=== PATIENT | female | born 1975 | race American Indian/Alaskan Native ===

== ENCOUNTER 2018-01-06 09:53 | Observation (INO) | payer MEDICARE ==
[2018-01-06] MEDS ORDERED: KEPPRA 1,000 MG/NS 0.75% 100ML 1,000 MG/100 ML BAG IV ONE (10:38)
[2018-01-06 10:50] LABS: Hematocrit 42.9 % (30.3-42.9); Hemoglobin 14.2 gm/dl (10.1-14.3); Mean Corpuscular HGB Conc 33 % (30-34); Mean Corpuscular Hemoglobin 30 pg (28-32); Mean Corpuscular Volume 89 fl (79-97); Platelet Count 255 K/mm3 (140-440); Red Blood Count 4.82 M/mm3 (3.65-5.03); Red Cell Distribution Width 13.8 % (13.2-15.2)
--- NOTE | 2018-01-06 10:50 | Emergency Department Report ---
ED Seizure HPI - General Chief Complaint: Seizure Stated Complaint: SEIZURE Time Seen by Provider: 01/06/18 10:15 Source: patient, EMS Mode of arrival: Ambulatory Limitations: No Limitations - History of Present Illness Initial Comments: 42-year-old female who states she has diffuse generalized seizures today. 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 She states that she self adjusting her own Keppra with a maximum of 3000 mg a day. She admits to missing some recent doses. She states that she does have her medication. She did not report any injury but states feels sore. She was not aware of a tongue abrasion which was found on exam. She does not complain of headache or any neurological change. She states that she had some sort of imaging at [facility] in [place] which showed an abnormality in her left frontal lobe. She states that it was not a tumor scar or abnormal blood vessel. She goes to a neurologist in [place]. She states that she is due to see him. The nurse has entered the social history. MD Complaint: seizure -: hour(s) Description of Episode: loss of consciousness, tonic-clonic movement -: second(s), minutes(s) Witnessed:: Yes Trauma: No (nothing significant) Seizure History: known seizure disorder Place: home Possible Precipitating Event: other (noncompliance) Associated Symptoms: denies other symptoms Treatments Prior to Arrival: none - Related Data Home Medications Medication Instructions Recorded Confirmed Last Taken Lacosamide [Vimpat] 300 mg PO DAILY 01/06/18 01/06/18 01/04/18 lamoTRIgine [LaMICtal] 100 mg PO QDAY 01/06/18 01/06/18 01/05/18 levETIRAcetam [Keppra] 1,500 mg PO DAILY 01/06/18 01/06/18 01/04/18 Allergies Allergy/AdvReac Type Severity Reaction Status Date / Time No Known Allergies Allergy Verified 04/22/14 21:44 ED Review of Systems ROS: Stated complaint: SEIZURE Other details as noted in HPI Constitutional: denies: chills, fever Eyes: denies: eye pain, eye discharge, vision change ENT: denies: ear pain, throat pain Respiratory: denies: cough, shortness of breath, wheezing Cardiovascular: denies: chest pain, palpitations Endocrine: no symptoms reported Gastrointestinal: denies: abdominal pain, nausea, diarrhea Genitourinary: denies: urgency, dysuria, discharge Musculoskeletal: denies: back pain, joint swelling, arthralgia Skin: denies: rash, lesions Neurological: denies: headache, weakness, paresthesias Psychiatric: denies: anxiety, depression Hematological/Lymphatic: denies: easy bleeding, easy bruising ED Past Medical Hx - Past Medical History Previous Medical History?: Yes Hx Hypertension: Yes Hx CVA: No Hx Heart Attack/AMI: No Hx Congestive Heart Failure: No Hx Diabetes: No Hx Deep Vein Thrombosis: No Hx Pulmonary Embolism: No Hx GERD: No Hx Liver Disease: No Hx Renal Disease: No Hx Sickle Cell Disease: No Hx Arthritis: No Hx Headaches / Migraines: No Hx Seizures: Yes (epilepsy) Hx Kidney Stones: No Hx Psychiatric Treatment: Yes (depression) Hx Asthma: No Hx COPD: No Hx Tuberculosis: No Hx Dementia: No Hx HIV: No - Surgical History Past Surgical History?: Yes Hx Coronary Stent: No Hx Open Heart Surgery: No Hx Pacemaker: No Hx Internal Defibrillator: No Hx Cholecystectomy: Yes (2003) Hx Appendectomy: No Hx Breast Surgery: No Additional Surgical History: hysterectomy 2012. abdominal abscess removal 2012 - Social History Smoking Status: Current Every Day Smoker Substance Use Type: Alcohol, Marijuana, Prescribed - Medications Home Medications: Home Medications Medication Instructions Recorded Confirmed Last Taken Type Lacosamide [Vimpat] 300 mg PO DAILY 01/06/18 01/06/18 01/04/18 History lamoTRIgine [LaMICtal] 100 mg PO QDAY 01/06/18 01/06/18 01/05/18 History levETIRAcetam [Keppra] 1,500 mg PO DAILY 01/06/18 01/06/18 01/04/18 History ED Physical Exam - General Limitations: No Limitations General appearance: alert, in no apparent distress - Head Head exam: Present: atraumatic, normocephalic - Eye Eye exam: Present: normal appearance - ENT ENT exam: Present: mucous membranes moist, other (small abrasion tip of the tongue noted) - Neck Neck exam: Present: normal inspection. Absent: tenderness, meningismus - Respiratory Respiratory exam: Present: normal lung sounds bilaterally. Absent: respiratory distress - Cardiovascular Cardiovascular Exam: Present: regular rate, normal rhythm. Absent: systolic murmur, diastolic murmur, rubs, gallop - GI/Abdominal GI/Abdominal exam: Present: soft, normal bowel sounds. Absent: distended, tenderness, guarding, rebound, rigid - Extremities Exam Extremities exam: Present: normal inspection. Absent: tenderness, joint swelling, calf tenderness - Back Exam Back exam: Present: normal inspection, full ROM. Absent: tenderness, CVA tenderness (R), CVA tenderness (L), muscle spasm, paraspinal tenderness, vertebral tenderness - Neurological Exam Neurological exam: Present: alert, oriented X3, CN II-XII intact. Absent: motor sensory deficit - Psychiatric Psychiatric exam: Present: normal affect, normal mood - Skin Skin exam: Present: warm, dry, intact, normal color. Absent: rash ED Course Vital Signs 01/06/18 01/06/18 01/06/18 10:03 10:15 10:30 Temperature 98.1 F Pulse Rate 113 H Respiratory 20 Rate Blood Pressure 123/80 140/81 O2 Sat by Pulse 96 94 97 Oximetry 01/06/18 01/06/18 01/06/18 10:46 11:00 11:16 Temperature Pulse Rate Respiratory Rate Blood Pressure 140/81 140/81 140/81 O2 Sat by Pulse 97 93 92 Oximetry - Reevaluation(s) Reevaluation #1: The patient was found to be hypocalcemic but not hypomagnesemic. A parathyroid hormone level was ordered. Drug screen results are noted. The patient states that she has never had this problem with low calcium before. She was placed on a monitoring tech and EKG was obtained. She was counseled that admission was necessary. 2 g of calcium gluconate as ordered. Apparently the hospital only has calcium chloride. This will be substituted. She is monitoring and further workup. The hospitalist Dr. Jaimes will be informed. She will be admitted to telemetry. Chest x-ray and EKG will be reviewed. 01/06/18 12:14 ED Medical Decision Making - Lab Data Result diagrams: 01/06/18 10:28 01/06/18 10:28 Laboratory Results - last 24 hr 01/06/18 01/06/18 01/06/18 10:28 10:28 10:28 WBC 9.2 RBC 4.82 Hgb 14.2 Hct 42.9 MCV 89 MCH 30 MCHC 33 RDW 13.8 Plt Count 255 Sodium 144 Potassium 3.7 Chloride 103.6 Carbon Dioxide 28 Anion Gap 16 BUN 14 Creatinine 0.7 Estimated GFR > 60 BUN/Creatinine Ratio 20 Glucose 103 H Calcium 6.0 L TSH 0.843 Urine Color Urine Turbidity Urine pH Ur Specific [place] Urine Protein Urine Glucose (UA) Urine Ketones Urine Blood Urine Nitrite Urine Bilirubin Urine Urobilinogen Ur Leukocyte Esterase Urine WBC (Auto) Urine RBC (Auto) U Epithel Cells (Auto) Hyaline Casts Urine Mucus Urine HCG, Qual 01/06/18 10:30 WBC RBC Hgb Hct MCV MCH MCHC RDW Plt Count Sodium Potassium Chloride Carbon Dioxide Anion Gap BUN Creatinine Estimated GFR BUN/Creatinine Ratio Glucose Calcium TSH Urine Color Yellow Urine Turbidity Clear Urine pH 5.0 Ur Specific [place] 1.019 Urine Protein <15 mg/dl Urine Glucose (UA) Neg Urine Ketones Neg Urine Blood Sm Urine Nitrite Neg Urine Bilirubin Neg Urine Urobilinogen < 2.0 Ur Leukocyte Esterase Neg Urine WBC (Auto) 1.0 Urine RBC (Auto) 2.0 U Epithel Cells (Auto) 9.0 Hyaline Casts 1 Urine Mucus Few Urine HCG, Qual Negative Laboratory Results - last 24 hr 01/06/18 01/06/18 01/06/18 10:28 10:28 10:28 WBC 9.2 RBC 4.82 Hgb 14.2 Hct 42.9 MCV 89 MCH 30 MCHC 33 RDW 13.8 Plt Count 255 Sodium 144 Potassium 3.7 Chloride 103.6 Carbon Dioxide 28 Anion Gap 16 BUN 14 Creatinine 0.7 Estimated GFR > 60 BUN/Creatinine Ratio 20 Glucose 103 H Calcium 6.0 L Magnesium Total Bilirubin Direct Bilirubin Indirect Bilirubin AST ALT Alkaline Phosphatase Total Protein Albumin Albumin/Globulin Ratio TSH 0.843 Urine Color Urine Turbidity Urine pH Ur Specific [place] Urine Protein Urine Glucose (UA) Urine Ketones Urine Blood Urine Nitrite Urine Bilirubin Urine Urobilinogen Ur Leukocyte Esterase Urine WBC (Auto) Urine RBC (Auto) U Epithel Cells (Auto) Hyaline Casts Urine Mucus Urine HCG, Qual Urine Opiates Screen Urine Methadone Screen Ur Barbiturates Screen Ur Phencyclidine Scrn Ur Amphetamines Screen U Benzodiazepines Scrn Urine Cocaine Screen U Marijuana (THC) Screen Drugs of Abuse Note 01/06/18 01/06/18 01/06/18 10:28 10:28 10:30 WBC RBC Hgb Hct MCV MCH MCHC RDW Plt Count Sodium Potassium Chloride Carbon Dioxide Anion Gap BUN Creatinine Estimated GFR BUN/Creatinine Ratio Glucose Calcium Magnesium 2.20 Total Bilirubin 0.60 Direct Bilirubin < 0.2 Indirect Bilirubin 0.4 AST 17 ALT 14 Alkaline Phosphatase 83 Total Protein 6.9 Albumin 3.9 Albumin/Globulin Ratio 1.3 TSH Urine Color Yellow Urine Turbidity Clear Urine pH 5.0 Ur Specific [place] 1.019 Urine Protein <15 mg/dl Urine Glucose (UA) Neg Urine Ketones Neg Urine Blood Sm Urine Nitrite Neg Urine Bilirubin Neg Urine Urobilinogen < 2.0 Ur Leukocyte Esterase Neg Urine WBC (Auto) 1.0 Urine RBC (Auto) 2.0 U Epithel Cells (Auto) 9.0 Hyaline Casts 1 Urine Mucus Few Urine HCG, Qual Negative Urine Opiates Screen Urine Methadone Screen Ur Barbiturates Screen Ur Phencyclidine Scrn Ur Amphetamines Screen U Benzodiazepines Scrn Urine Cocaine Screen U Marijuana (THC) Screen Drugs of Abuse Note 01/06/18 10:30 WBC RBC Hgb Hct MCV MCH MCHC RDW Plt Count Sodium Potassium Chloride Carbon Dioxide Anion Gap BUN Creatinine Estimated GFR BUN/Creatinine Ratio Glucose Calcium Magnesium Total Bilirubin Direct Bilirubin Indirect Bilirubin AST ALT Alkaline Phosphatase Total Protein Albumin Albumin/Globulin Ratio TSH Urine Color Urine Turbidity Urine pH Ur Specific [place] Urine Protein Urine Glucose (UA) Urine Ketones Urine Blood Urine Nitrite Urine Bilirubin Urine Urobilinogen Ur Leukocyte Esterase Urine WBC (Auto) Urine RBC (Auto) U Epithel Cells (Auto) Hyaline Casts Urine Mucus Urine HCG, Qual Urine Opiates Screen Presumptive negative Urine Methadone Screen Presumptive negative Ur Barbiturates Screen Presumptive negative Ur Phencyclidine Scrn Presumptive negative Ur Amphetamines Screen Presumptive positive U Benzodiazepines Scrn Presumptive negative Urine Cocaine Screen Presumptive positive U Marijuana (THC) Screen Presumptive positive Drugs of Abuse Note Disclamer - EKG Data -: EKG Interpreted by Ar EKG shows normal: sinus rhythm, axis, intervals, QRS complexes, ST-T waves Rate: normal - EKG Data Interpretation: other (normal QT interval) - Radiology Data Radiology results: report reviewed (normal chest x-ray) Critical care attestation.: If time is entered above; I have spent that time in minutes in the direct care of this critically ill patient, excluding procedure time. ED Disposition Clinical Impression: Grand mal seizure, History of seizure disorder, Hypocalcemia, Polysubstance abuse Disposition: [id number] OP ADMIT IP TO THIS HOSP Is pt being admited?: Yes Does the pt Need Aspirin: Yes Condition: Stable Referrals: CORTEZ WEATHERS MD [Other] - 3-5 Days Time of Disposition: 12:17
[2018-01-06 10:54] LABS: Bilirubin,Urine NEG (Negative); Blood,Urine SM (Negative); Color,Urine Yellow (Yellow); Hyaline Casts,Urine 1 /LPF; Mucus,Urine FEW /HPF; Protein,Urine <15 mg/dL mg/dL (Negative); Urobilinogen,Urine < 2.0 mg/dL (<2.0)
[2018-01-06 11:06] LABS: BUN/Creatinine Ratio 20; Blood Urea Nitrogen 14 mg/dL (7-17); Hemolysis Index 16
[2018-01-06 11:06] LABS: HCG Qualitative,Urine Negative (Negative)
[2018-01-06 11:25] LABS: Benzodiazepines Screen,Urine PRESUMPTIVE NEGATIVE; Methadone Screen,Urine PRESUMPTIVE NEGATIVE; Opiate Screen,Urine PRESUMPTIVE NEGATIVE
[2018-01-06 11:33] LABS: Alanine Aminotransferase 14 units/L (7-56); Albumin 3.9 g/dL (3.9-5)
[2018-01-06 11:35] LABS: Bilirubin,Direct < 0.2 mg/dL (0-0.2)
[2018-01-06 11:46] LABS: Amphetamine Screen,Urine PRESUMPTIVE POSITIVE; Cannabinoid Screen,Urine PRESUMPTIVE POSITIVE; Cocaine Screen,Urine PRESUMPTIVE POSITIVE
[2018-01-06] MEDS ORDERED: CALCIUM GLUCONATE 2,000 MG in NACL 0.9% 100 ML IV ONE (12:07)
[2018-01-06] MEDS ORDERED: BABY ASPIRIN PO ONE (12:17)
[2018-01-06 12:28] LABS: Creatine Kinase MB 3.2 ng/mL (0.0-4.0)
[2018-01-06] MEDS ORDERED: CALCIUM CHLORIDE IV ONE ×3 (12:56→20:00)
[2018-01-06] MEDS ORDERED: NACL 0.9% IV ONE ×2 (13:00→20:00)
--- NOTE | 2018-01-06 14:00 | History and Physical Report ---
History of Present Illness Date of examination: 01/06/18 Date of admission: 01/06/2018 Chief complaint: Chief complaint: Seizures times 2 in the morning History of present illness: History of Present Illness: 42-year-old female with history of seizures comes in for 2 generalized tonic- clonic seizures since a.m. Patient was postictal. Patient has been adjusting her own Keppra with a maximum of 3000 mg a day. No reported injury. No biting of tongue. No focal deficits. Patient recently had some imaging studies in [place] and she does not know the results. She sees a neurologist in [place]. No shortness of breath no chest pain. No recent travel. No abdominal pain. No exacerbating or relieving factors other than noncompliance. Past Medical History Previous Medical History?: Yes Hx Hypertension: Yes Hx Seizures: Yes (epilepsy) Hx Psychiatric Treatment: Yes (depression) Surgical History Past Surgical History?: Yes Hx Cholecystectomy: Yes (2003) Additional Surgical History: hysterectomy 2012. abdominal abscess removal 2012 Social History Smoking Status: Current Every Day Smoker Substance Use Type: Alcohol, Marijuana, Prescribed Medications Home Medications: Home Medications Medication Instructions Recorded Confirmed Last Taken Type Lacosamide [Vimpat] 300 mg PO DAILY 01/06/18 01/06/18 01/04/18 History lamoTRIgine [LaMICtal] 100 mg PO QDAY 01/06/18 01/06/18 01/05/18 History levETIRAcetam [Keppra] 1,500 mg PO DAILY 01/06/18 01/06/18 01/04/18 History Family history Htn Review of Systems ROS: Stated complaint: SEIZURE Other details as noted in HPI Constitutional: denies: chills, fever Eyes: denies: eye pain, eye discharge, vision change ENT: denies: ear pain, throat pain Respiratory: denies: cough, shortness of breath, wheezing Cardiovascular: denies: chest pain, palpitations Endocrine: no symptoms reported Gastrointestinal: denies: abdominal pain, nausea, diarrhea Genitourinary: denies: urgency, dysuria, discharge Musculoskeletal: denies: back pain, joint swelling, arthralgia Skin: denies: rash, lesions Neurological: denies: headache, weakness, paresthesias Psychiatric: denies: anxiety, depression Hematological/Lymphatic: denies: easy bleeding, easy bruising 14 point review of systems done----otherwise negative Medications and Allergies Allergies Allergy/AdvReac Type Severity Reaction Status Date / Time No Known Allergies Allergy Verified 04/22/14 21:44 Home Medications Medication Instructions Recorded Confirmed Last Taken Type Atenolol [Tenormin] 100 mg PO BID 01/06/18 01/06/18 Unknown History Furosemide [Lasix] 40 mg PO BID 01/06/18 01/06/18 Unknown History Lacosamide [Vimpat] 300 mg PO DAILY 01/06/18 01/06/18 01/04/18 History Sertraline [Zoloft] 100 mg PO BID 01/06/18 01/06/18 Unknown History amLODIPine [Norvasc] 10 mg PO DAILY 01/06/18 01/06/18 Unknown History lamoTRIgine [LaMICtal] 100 mg PO QDAY 01/06/18 01/06/18 01/05/18 History levETIRAcetam [Keppra] 1,500 mg PO DAILY 01/06/18 01/06/18 01/04/18 History tiZANidine [Zanaflex] 4 mg PO TID PRN 01/06/18 01/06/18 Unknown History Active Meds: Active Medications Calcium Chloride 2,000 mg/ (Sodium Chloride) 270 mls @ 125 mls/hr IV ONCE.ED ONE Stop: 01/06/18 15:09 Last Admin: 01/06/18 13:27 Dose: 125 mls/hr Exam - Constitutional Vitals: Temp Pulse Resp BP Pulse Ox 98.1 F 113 H 20 140/81 92 01/06/18 10:03 01/06/18 10:03 01/06/18 10:03 01/06/18 11:16 01/06/18 11:16 General appearance: Present: no acute distress, well-nourished - EENT Eyes: Present: PERRL ENT: hearing intact, clear oral mucosa - Neck Neck: Present: supple, normal ROM - Respiratory Respiratory effort: normal Respiratory: bilateral: CTA - Cardiovascular Heart rate: 76 Rhythm: regular Heart Sounds: Present: S1 & S2. Absent: rub, click - Extremities Extremities: no ischemia, pulses intact, pulses symmetrical, No edema Peripheral Pulses: within normal limits - Abdominal General gastrointestinal: Present: soft, non-tender, non-distended, normal bowel sounds Female genitourinary: Present: normal - Rectal Rectal Exam: deferred - Integumentary Integumentary: Present: clear, warm, dry - Musculoskeletal Musculoskeletal: gait normal, strength equal bilaterally - Psychiatric Psychiatric: appropriate mood/affect, intact judgment & insight - Neurologic Neurologic: CNII-XII intact, moves all extremities - Allied Health Allied health notes reviewed: nursing, case management Results - Labs CBC & Chem 7: 01/06/18 10:28 01/06/18 10:28 Labs: Laboratory Last Values WBC 9.2 K/mm3 (4.5-11.0) 01/06/18 10:28 RBC 4.82 M/mm3 (3.65-5.03) 01/06/18 10:28 Hgb 14.2 gm/dl (10.1-14.3) 01/06/18 10:28 Hct 42.9 % (30.3-42.9) 01/06/18 10:28 MCV 89 fl (79-97) 01/06/18 10:28 MCH 30 pg (28-32) 01/06/18 10:28 MCHC 33 % (30-34) 01/06/18 10:28 RDW 13.8 % (13.2-15.2) 01/06/18 10:28 Plt Count 255 K/mm3 (140-440) 01/06/18 10:28 Sodium 144 mmol/L (137-145) 01/06/18 10:28 Potassium 3.7 mmol/L (3.6-5.0) 01/06/18 10:28 Chloride 103.6 mmol/L (98-107) 01/06/18 10:28 Carbon Dioxide 28 mmol/L (22-30) 01/06/18 10:28 Anion Gap 16 mmol/L 01/06/18 10:28 BUN 14 mg/dL (7-17) 01/06/18 10:28 Creatinine 0.7 mg/dL (0.7-1.2) 01/06/18 10:28 Estimated GFR > 60 ml/min 01/06/18 10:28 BUN/Creatinine Ratio 20 % 01/06/18 10:28 Glucose 103 mg/dL (65-100) H 01/06/18 10:28 Calcium 6.0 mg/dL (8.4-10.2) L 01/06/18 10:28 Magnesium 2.20 mg/dL (1.7-2.3) 01/06/18 10:28 Total Bilirubin 0.60 mg/dL (0.1-1.2) 01/06/18 10:28 Direct Bilirubin < 0.2 mg/dL (0-0.2) 01/06/18 10:28 Indirect Bilirubin 0.4 mg/dL 01/06/18 10:28 AST 17 units/L (5-40) 01/06/18 10:28 ALT 14 units/L (7-56) 01/06/18 10:28 Alkaline Phosphatase 83 units/L (35-129) 01/06/18 10:28 Total Creatine Kinase 273 units/L (30-135) H 01/06/18 10:28 CK-MB (CK-2) 3.2 ng/mL (0.0-4.0) 01/06/18 10:28 CK-MB (CK-2) Rel Index 1.1 (0-4) 01/06/18 10:28 Total Protein 6.9 g/dL (6.3-8.2) 01/06/18 10:28 Albumin 3.9 g/dL (3.9-5) 01/06/18 10:28 Albumin/Globulin Ratio 1.3 % 01/06/18 10:28 TSH 0.843 mlU/mL (0.270-4.200) 01/06/18 10:28 PTH Intact 28.13 pg/mL (15-65) 01/06/18 10:28 Urine Color Yellow (Yellow) 01/06/18 10:30 Urine Turbidity Clear (Clear) 01/06/18 10:30 Urine pH 5.0 (5.0-7.0) 01/06/18 10:30 Ur Specific [place] 1.019 (1.003-1.030) 01/06/18 10:30 Urine Protein <15 mg/dl mg/dL (Negative) 01/06/18 10:30 Urine Glucose (UA) Neg mg/dL (Negative) 01/06/18 10:30 Urine Ketones Neg mg/dL (Negative) 01/06/18 10:30 Urine Blood Sm (Negative) 01/06/18 10:30 Urine Nitrite Neg (Negative) 01/06/18 10:30 Urine Bilirubin Neg (Negative) 01/06/18 10:30 Urine Urobilinogen < 2.0 mg/dL (<2.0) 01/06/18 10:30 Ur Leukocyte Esterase Neg (Negative) 01/06/18 10:30 Urine WBC (Auto) 1.0 /HPF (0.0-6.0) 01/06/18 10:30 Urine RBC (Auto) 2.0 /HPF (0.0-6.0) 01/06/18 10:30 U Epithel Cells (Auto) 9.0 /HPF (0-13.0) 01/06/18 10:30 Hyaline Casts 1 /LPF 01/06/18 10:30 Urine Mucus Few /HPF 01/06/18 10:30 Urine HCG, Qual Negative (Negative) 01/06/18 10:30 Urine Opiates Screen Presumptive negative 01/06/18 10:30 Urine Methadone Screen Presumptive negative 01/06/18 10:30 Ur Barbiturates Screen Presumptive negative 01/06/18 10:30 Ur Phencyclidine Scrn Presumptive negative 01/06/18 10:30 Ur Amphetamines Screen Presumptive positive 01/06/18 10:30 U Benzodiazepines Scrn Presumptive negative 01/06/18 10:30 Urine Cocaine Screen Presumptive positive 01/06/18 10:30 U Marijuana (THC) Screen Presumptive positive 01/06/18 10:30 Drugs of Abuse Note Disclamer 01/06/18 10:30 Short CBC 01/06/18 Range/Units 10:28 WBC 9.2 (4.5-11.0) K/mm3 Hgb 14.2 (10.1-14.3) gm/dl Hct 42.9 (30.3-42.9) % Plt Count 255 (140-440) K/mm3 BMP 01/06/18 10:28 Sodium 144 Potassium 3.7 Chloride 103.6 Carbon Dioxide 28 BUN 14 Creatinine 0.7 Glucose 103 H Calcium 6.0 L Cardiac Enzymes 01/06/18 Range/Units 10:28 Total Creatine Kinase 273 H (30-135) units/L CK-MB (CK-2) 3.2 (0.0-4.0) ng/mL Liver Function 01/06/18 Range/Units 10:28 Total Bilirubin 0.60 (0.1-1.2) mg/dL Direct Bilirubin < 0.2 (0-0.2) mg/dL AST 17 (5-40) units/L ALT 14 (7-56) units/L Alkaline Phosphatase 83 (35-129) units/L Albumin 3.9 (3.9-5) g/dL Urine // Range/Units 10:30 Urine Color Yellow (Yellow) Urine pH 5.0 (5.0-7.0) Ur Specific [place] 1.019 (1.003-1.030) Urine Protein <15 mg/dl (Negative) mg/dL Urine Glucose (UA) Neg (Negative) mg/dL - Imaging and Cardiology EKG: report reviewed ( 72/m ) Assessment and Plan Advance Directives: Yes (full code) VTE prophylaxis?: Chemical Plan of care discussed with patient/family: Yes - Patient Problems (1) Status epilepticus Current Visit: Yes Status: Acute Plan to address problem: Patient initiated on IV Keppra Continue Vimpat and Lamictal Neuro consult requested May require EEG (2) Hypocalcemia Current Visit: Yes Status: Acute Plan to address problem: Supplemented Parathyroid hormone level ordered (3) Polysubstance abuse Current Visit: Yes Status: Chronic Plan to address problem: Patient counseled about polysubstance abuse and its effect on seizures. Drug screen positive for cocaine marijuana and amphetamines Mental health consult requested (4) Hypertension Current Visit: Yes Status: Chronic Qualifiers: Hypertension type: essential hypertension Qualified Code(s): I10 - Essential (primary) hypertension Plan to address problem: Continue atenolol and amlodipine (5) CHF (congestive heart failure) Current Visit: Yes Status: Chronic Qualifiers: Heart failure type: combined systolic and diastolic Plan to address problem: Continue Lasix Patient not on potassium Will add potassium Echocardiogram ordered (6) DVT prophylaxis Current Visit: Yes Status: Acute Plan to address problem: On heparin 5000 units subcutaneous every 12 hours
[2018-01-06] MEDS ORDERED: ZANAFLEX PO PRN (18:37)
[2018-01-06] MEDS ORDERED: LACOSAMIDE 300 MG PO SCH (18:45)
[2018-01-06] MEDS ORDERED: TYLENOL PO PRN (18:53)
[2018-01-06] MEDS ORDERED: ZOFRAN IV PRN (18:53)
[2018-01-06] MEDS ORDERED: SODIUM CHLORIDE FLUSH SYRINGE 10 ML IV PRN (18:53)
[2018-01-06] MEDS ORDERED: PERCOCET 5/325 PO PRN (18:53)
[2018-01-06] MEDS ORDERED: NACL 0.9% 1000 ML 1,000 ML IV SCH (19:00)
[2018-01-06] MEDS: ZOLOFT PO SCH (21:46)
[2018-01-06] MEDS: LaMICtal PO SCH (21:46)
[2018-01-06] MEDS: NORVASC PO SCH (21:46)
[2018-01-06] MEDS: VIMPAT PO SCH (21:46)
[2018-01-06] MEDS: TENORMIN PO SCH (21:47)
[2018-01-06] MEDS ORDERED: NON-FORMULARY (Atenolol [Tenormin] 100 MG) PO SCH (22:00)
[2018-01-06] MEDS ORDERED: LASIX PO SCH (22:00)
[2018-01-07] MEDS: PEPCID PO SCH ×3 (00:41→22:03)
[2018-01-07] MEDS: SODIUM CHLORIDE FLUSH SYRINGE 10 ML IV SCH ×3 (01:10→22:04)
[2018-01-07] MEDS: LASIX PO SCH ×2 (06:43→17:57)
[2018-01-07 08:51] LABS: Basophils # (Auto) 0.1 K/mm3 (0.0-0.1); Basophils % (Auto) 0.6 % (0.0-1.8); Eosinophils # (Auto) 0.2 K/mm3 (0.0-0.4); Eosinophils % (Auto) 2.1 % (0.0-4.3); Hematocrit 39.7 % (30.3-42.9); Hemoglobin 12.9 gm/dl (10.1-14.3); Lymphocytes # (Auto) 3.5 K/mm3 (1.2-5.4); Lymphocytes % (Auto) 34.2 % (13.4-35.0); Mean Corpuscular HGB Conc 33 % (30-34); Mean Corpuscular Hemoglobin 29 pg (28-32); Mean Corpuscular Volume 90 fl (79-97); Monocytes # (Auto) 0.6 K/mm3 (0.0-0.8); Monocytes % (Auto) 5.6 % (0.0-7.3); Platelet Count 251 K/mm3 (140-440); Red Blood Count 4.43 M/mm3 (3.65-5.03); Red Cell Distribution Width 13.7 % (13.2-15.2)
[2018-01-07 09:18] LABS: Alanine Aminotransferase 11 units/L (7-56); Albumin 3.9 g/dL (3.9-5); BUN/Creatinine Ratio 20; Blood Urea Nitrogen 14 mg/dL (7-17); Calcium 9.2 mg/dL (8.4-10.2); Hemolysis Index 11
[2018-01-07] MEDS: TENORMIN PO SCH ×2 (09:48→22:04)
[2018-01-07] MEDS: VIMPAT PO SCH (09:49)
[2018-01-07] MEDS: NORVASC PO SCH (09:49)
[2018-01-07] MEDS: ZOLOFT PO SCH ×2 (09:49→22:03)
[2018-01-07] MEDS: LaMICtal PO SCH (09:49)
--- NOTE | 2018-01-07 12:30 | Consultation ---
History of Present Illness Consult date: 01/07/18 History of present illness: at least ten year hx of poorly controlled seizures has been on vimpat / keppra / and lamictal made recommendation that the most effective drug to increase is the vimpat neuro exam at present is entirely normal Medications and Allergies Allergies Allergy/AdvReac Type Severity Reaction Status Date / Time No Known Allergies Allergy Verified 04/22/14 21:44 Home Medications Medication Instructions Recorded Confirmed Last Taken Type Atenolol [Tenormin] 100 mg PO BID 01/06/18 01/06/18 Unknown History Furosemide [Lasix] 40 mg PO BID 01/06/18 01/06/18 Unknown History Lacosamide [Vimpat] 300 mg PO DAILY 01/06/18 01/06/18 01/04/18 History Sertraline [Zoloft] 100 mg PO BID 01/06/18 01/06/18 Unknown History amLODIPine [Norvasc] 10 mg PO DAILY 01/06/18 01/06/18 Unknown History lamoTRIgine [LaMICtal] 100 mg PO QDAY 01/06/18 01/06/18 01/05/18 History levETIRAcetam [Keppra] 1,500 mg PO DAILY 01/06/18 01/06/18 01/04/18 History tiZANidine [Zanaflex] 4 mg PO TID PRN 01/06/18 01/06/18 Unknown History Active Meds: Active Medications Acetaminophen (Tylenol) 650 mg PO Q4H PRN PRN Reason: Pain MILD(1-3)/Fever >100.5/FREY Amlodipine Besylate (Norvasc) 10 mg PO DAILY [facility] Last Admin: 01/07/18 09:49 Dose: 10 mg Atenolol (Tenormin) 100 mg PO BID [facility] Last Admin: 01/07/18 09:48 Dose: 100 mg Famotidine (Pepcid) 20 mg PO BID [facility] Last Admin: 01/07/18 09:49 Dose: 20 mg Furosemide (Lasix) 40 mg PO BID@0600,1800 [facility] Last Admin: 01/07/18 06:43 Dose: 40 mg Lacosamide (Vimpat) 300 mg PO DAILY [facility] Last Admin: 01/07/18 09:49 Dose: 300 mg Lamotrigine (Lamictal) 100 mg PO QDAY [facility] Last Admin: 01/07/18 09:49 Dose: 100 mg Ondansetron HCl (Zofran) 4 mg IV Q8H PRN PRN Reason: Nausea And Vomiting Oxycodone/Acetaminophen (Percocet 5/325) 1 tab PO Q6H PRN PRN Reason: Pain, Moderate (4-6) Sertraline HCl (Zoloft) 100 mg PO BID [facility] Last Admin: 01/07/18 09:49 Dose: 100 mg Sodium Chloride (Sodium Chloride Flush Syringe 10 Ml) 10 ml IV BID [facility] Last Admin: 01/07/18 09:50 Dose: 10 ml Sodium Chloride (Sodium Chloride Flush Syringe 10 Ml) 10 ml IV PRN PRN PRN Reason: LINE FLUSH Tizanidine HCl (Zanaflex) 4 mg PO TID PRN PRN Reason: Muscle Spasm Zolpidem Tartrate (Ambien) 5 mg PO QHS PRN PRN Reason: Insomnia Physical Examination - Vital Signs Vital Signs: Vital Signs Temp Pulse Resp BP Pulse Ox 98.1 F 113 H 20 123/80 96 01/06/18 10:03 01/06/18 10:03 01/06/18 10:03 01/06/18 10:03 01/06/18 10:03 Results - Laboratory Findings CBC and BMP: 01/07/18 08:30 01/07/18 08:30 Abnormal Lab Findings: Abnormal Labs 01/06/18 01/06/18 01/07/18 10:28 10:28 08:30 Glucose 103 H 108 H Calcium 6.0 L Total Creatine Kinase 273 H
--- NOTE | 2018-01-07 13:51 | Progress Note ---
Assessment and Plan (1) Status epilepticus Current Visit: Yes Status: Acute Plan to address problem: Patient initiated on IV Keppra Continue Vimpat and Lamictal Neuro consult requested May require EEG (2) Hypocalcemia Current Visit: Yes Status: Acute Plan to address problem: Supplemented Parathyroid hormone level ordered (3) Polysubstance abuse Current Visit: Yes Status: Chronic Plan to address problem: Patient counseled about polysubstance abuse and its effect on seizures. Drug screen positive for cocaine marijuana and amphetamines Mental health consult requested (4) Hypertension Current Visit: Yes Status: Chronic Qualifiers: Hypertension type: essential hypertension Qualified Code(s): I10 - Essential (primary) hypertension Plan to address problem: Continue atenolol and amlodipine (5) CHF (congestive heart failure) Current Visit: Yes Status: Chronic Qualifiers: Heart failure type: combined systolic and diastolic Plan to address problem: Continue Lasix Patient not on potassium Will add potassium Echocardiogram ordered (6) DVT prophylaxis Current Visit: Yes Status: Acute Plan to address problem: On heparin 5000 units subcutaneous every 12 hours Subjective Date of service: 01/07/18 Principal diagnosis: status epilepticus, HFrEF Interval history: Pt seen and examined. No more seizure activity. Objective - Constitutional Vitals: Vital Signs - 12hr 01/07/18 01/07/18 01/07/18 01:48 05:46 07:39 Temperature 98.6 F 98.6 F 97.8 F Pulse Rate 69 72 69 Respiratory 20 18 20 Rate Blood Pressure 161/90 Blood Pressure 153/74 149/81 [Left] O2 Sat by Pulse 92 96 96 Oximetry 01/07/18 01/07/18 01/07/18 08:47 09:48 09:49 Temperature Pulse Rate 69 69 Respiratory 19 Rate Blood Pressure 161/90 161/90 Blood Pressure [Left] O2 Sat by Pulse Oximetry 01/07/18 11:35 Temperature 98.0 F Pulse Rate 71 Respiratory 18 Rate Blood Pressure 144/84 Blood Pressure [Left] O2 Sat by Pulse 92 Oximetry - Labs CBC & Chem 7: 01/07/18 08:30 01/07/18 08:30 Labs: Abnormal lab results 01/07/18 Range/Units 08:30 Glucose 108 H (65-100) mg/dL
[2018-01-07] MEDS: AMBIEN PO PRN (22:16)
[2018-01-08 05:30] LABS: Basophils % (Auto) 0.4 % (0.0-1.8); Eosinophils # (Auto) 0.3 K/mm3 (0.0-0.4); Eosinophils % (Auto) 3.2 % (0.0-4.3); Hematocrit 37.7 % (30.3-42.9); Hemoglobin 12.7 gm/dl (10.1-14.3); Lymphocytes # (Auto) 3.8 K/mm3 (1.2-5.4); Lymphocytes % (Auto) 43.1 % (13.4-35.0); Mean Corpuscular HGB Conc 34 % (30-34); Mean Corpuscular Hemoglobin 30 pg (28-32); Mean Corpuscular Volume 88 fl (79-97); Monocytes # (Auto) 0.6 K/mm3 (0.0-0.8); Monocytes % (Auto) 6.2 % (0.0-7.3); Platelet Count 234 K/mm3 (140-440); Red Blood Count 4.29 M/mm3 (3.65-5.03); Red Cell Distribution Width 13.4 % (13.2-15.2)
[2018-01-08 05:45] LABS: INR 0.9 (0.87-1.13)
[2018-01-08 05:50] LABS: Alanine Aminotransferase 13 units/L (7-56); Albumin 3.8 g/dL (3.9-5); BUN/Creatinine Ratio 17; Blood Urea Nitrogen 12 mg/dL (7-17); Calcium 8.5 mg/dL (8.4-10.2); Hemolysis Index 8
[2018-01-08] MEDS: LASIX PO SCH ×2 (06:02→17:41)
[2018-01-08] MEDS: ZOLOFT PO SCH ×2 (10:14→21:11)
[2018-01-08] MEDS: TENORMIN PO SCH ×2 (10:14→21:11)
[2018-01-08] MEDS: NORVASC PO SCH (10:15)
[2018-01-08] MEDS: PEPCID PO SCH ×2 (10:16→21:11)
[2018-01-08] MEDS: VIMPAT PO SCH (10:16)
[2018-01-08] MEDS: SODIUM CHLORIDE FLUSH SYRINGE 10 ML IV SCH ×2 (10:16→21:12)
[2018-01-08] MEDS: LaMICtal PO SCH (10:16)
--- NOTE | 2018-01-08 14:00 | Progress Note ---
Assessment and Plan (1) Status epilepticus Current Visit: Yes Status: Acute Plan to address problem: Patient initiated on IV Keppra Continue Vimpat and Lamictal Neuro consult requested and adjusted AED dose Pending EEG (2) Hypocalcemia Current Visit: Yes Status: Acute Plan to address problem: Supplemented Parathyroid hormone level ordered (3) Polysubstance abuse Current Visit: Yes Status: Chronic Plan to address problem: Patient counseled about polysubstance abuse and its effect on seizures. Drug screen positive for cocaine marijuana and amphetamines Mental health consult requested (4) Hypertension Current Visit: Yes Status: Chronic Qualifiers: Hypertension type: essential hypertension Qualified Code(s): I10 - Essential (primary) hypertension Plan to address problem: Continue atenolol and amlodipine (5) CHF (congestive heart failure) Current Visit: Yes Status: Chronic Qualifiers: Heart failure type: combined systolic and diastolic Plan to address problem: Continue Lasix Patient not on potassium Will cont potassium Echocardiogram ordered (6) DVT prophylaxis Current Visit: Yes Status: Acute Plan to address problem: On heparin 5000 units subcutaneous every 12 hours Physical Exam: General appearance: Present: no acute distress, well-nourished - EENT Eyes: Present: PERRL ENT: hearing intact, clear oral mucosa - Neck Neck: Present: supple, normal ROM - Respiratory Respiratory effort: normal Respiratory: bilateral: CTA - Cardiovascular Heart rate: 76 Rhythm: regular Heart Sounds: Present: S1 & S2. Absent: rub, click - Extremities Extremities: no ischemia, pulses intact, pulses symmetrical, No edema Peripheral Pulses: within normal limits - Abdominal General gastrointestinal: Present: soft, non-tender, non-distended, normal bowel sounds Female genitourinary: Present: normal - Rectal Rectal Exam: deferred - Integumentary Integumentary: Present: clear, warm, dry - Musculoskeletal Musculoskeletal: gait normal, strength equal bilaterally - Psychiatric Psychiatric: appropriate mood/affect, intact judgment & insight - Neurologic Neurologic: CNII-XII intact, moves all extremities - Allied Health Allied health notes reviewed: nursing, case management Subjective Date of service: 01/08/18 Principal diagnosis: status epilepticus, HFrEF Interval history: Pt seen and examined No further seizure episode EEG pending Objective - Constitutional Vitals: Vital Signs - 12hr 01/08/18 01/08/18 01/08/18 04:35 04:49 08:45 Temperature 98.1 F 97.9 F Pulse Rate 55 L 60 60 Respiratory 18 18 Rate Blood Pressure 137/64 127/67 129/85 O2 Sat by Pulse 99 94 98 Oximetry 01/08/18 01/08/18 01/08/18 09:33 10:14 10:15 Temperature Pulse Rate 61 61 Respiratory 19 Rate Blood Pressure 129/85 129/85 O2 Sat by Pulse Oximetry - Labs CBC & Chem 7: 01/09/18 07:41 01/09/18 07:41 Labs: Abnormal lab results 01/08/18 01/08/18 Range/Units 04:58 04:58 Lymph % (Auto) 43.1 H (13.4-35.0) % Glucose 103 H (65-100) mg/dL Albumin 3.8 L (3.9-5) g/dL
[2018-01-08] MEDS: AMBIEN PO PRN (21:11)
[2018-01-09] MEDS: LASIX PO SCH (05:28)
[2018-01-09 08:03] LABS: Basophils # (Auto) 0.1 K/mm3 (0.0-0.1); Basophils % (Auto) 0.9 % (0.0-1.8); Eosinophils # (Auto) 0.3 K/mm3 (0.0-0.4); Eosinophils % (Auto) 2.8 % (0.0-4.3); Hematocrit 40.5 % (30.3-42.9); Hemoglobin 13.5 gm/dl (10.1-14.3); Lymphocytes # (Auto) 4.1 K/mm3 (1.2-5.4); Lymphocytes % (Auto) 39.7 % (13.4-35.0); Mean Corpuscular HGB Conc 33 % (30-34); Mean Corpuscular Hemoglobin 30 pg (28-32); Mean Corpuscular Volume 89 fl (79-97); Monocytes # (Auto) 0.8 K/mm3 (0.0-0.8); Monocytes % (Auto) 7.4 % (0.0-7.3); Platelet Count 270 K/mm3 (140-440); Red Blood Count 4.57 M/mm3 (3.65-5.03); Red Cell Distribution Width 13.5 % (13.2-15.2)
[2018-01-09 08:54] LABS: Alanine Aminotransferase 25 units/L (7-56); Albumin 3.8 g/dL (3.9-5); BUN/Creatinine Ratio 19; Blood Urea Nitrogen 13 mg/dL (7-17); Hemolysis Index 45
[2018-01-09] MEDS: NORVASC PO SCH (10:00)
[2018-01-09] MEDS: PEPCID PO SCH (10:01)
[2018-01-09] MEDS: SODIUM CHLORIDE FLUSH SYRINGE 10 ML IV SCH (10:01)
[2018-01-09] MEDS: VIMPAT PO SCH (10:03)
[2018-01-09] MEDS: TENORMIN PO SCH (10:03)
[2018-01-09] MEDS: ZOLOFT PO SCH (10:04)
[2018-01-09] MEDS: LaMICtal PO SCH (10:05)
--- NOTE | 2018-01-09 12:55 | Progress Note ---
Subjective Date of service: 01/09/18 Principal diagnosis: status epilepticus, HFrEF Interval history: feel it is OK to be discharged would raise dose of vimpat by 100 mg per day and f/u in my office known hx of seizure disorder Objective - Vital Sign Vital Signs - 12hr 01/09/18 01/09/18 01/09/18 05:46 07:16 10:00 Temperature 98.6 F 98.4 F Pulse Rate 60 57 L 58 L Pulse Rate [ 58 L Right Radial] Respiratory 20 20 20 Rate Blood Pressure 120/50 Blood Pressure 122/57 [Left] O2 Sat by Pulse 95 96 98 Oximetry - Laboratory Findings CBC and BMP: 01/09/18 07:41 01/09/18 07:41 Abnormal Lab Findings: Abnormal Labs 01/06/18 01/06/18 01/07/18 10:28 10:28 08:30 Lymph % (Auto) Sac % (Auto) Glucose 103 H 108 H Calcium 6.0 L Total Creatine Kinase 273 H Albumin 01/08/18 01/08/18 01/09/18 04:58 04:58 07:41 Lymph % (Auto) 43.1 H 39.7 H Sac % (Auto) 7.4 H Glucose 103 H Calcium Total Creatine Kinase Albumin 3.8 L 01/09/18 07:41 Lymph % (Auto) Sac % (Auto) Glucose Calcium Total Creatine Kinase Albumin 3.8 L
--- NOTE | 2018-01-09 14:07 | Discharge Summary ---
Providers - Providers Date of Admission: 01/06/18 12:18 Date of discharge: 01/09/18 Attending physician: RYAN REID 01/06/18 18:53 Consult to Physician [CONS] Routine Comment: Consulting Provider: NESTOR CHRISTENSEN Physician Instructions: Reason For Exam: Seizures Hospitalization Condition: Stable Hospital course: Discharge diagnosis: (1) Status epilepticus Current Visit: Yes Status: Acute Plan to address problem: Patient initiated on IV Keppra Continue Vimpat and Lamictal Neuro consult requested and adjusted AED dose Pending EEG (2) Hypocalcemia Current Visit: Yes Status: Acute Plan to address problem: Supplemented Parathyroid hormone level ordered (3) Polysubstance abuse Current Visit: Yes Status: Chronic Plan to address problem: Patient counseled about polysubstance abuse and its effect on seizures. Drug screen positive for cocaine marijuana and amphetamines Mental health consult requested (4) Hypertension Current Visit: Yes Status: Chronic Qualifiers: Hypertension type: essential hypertension Qualified Code(s): I10 - Essential (primary) hypertension Plan to address problem: Continue atenolol and amlodipine (5) CHF (congestive heart failure) Current Visit: Yes Status: Chronic Qualifiers: Heart failure type: combined systolic and diastolic Plan to address problem: Continue Lasix Patient not on potassium Will cont potassium Echocardiogram ordered (6) DVT prophylaxis Current Visit: Yes Status: Acute Plan to address problem: On heparin 5000 units subcutaneous every 12 hours Physical Exam: General appearance: Present: no acute distress, well-nourished - EENT Eyes: Present: PERRL ENT: hearing intact, clear oral mucosa - Neck Neck: Present: supple, normal ROM - Respiratory Respiratory effort: normal Respiratory: bilateral: CTA - Cardiovascular Heart rate: 76 Rhythm: regular Heart Sounds: Present: S1 & S2. Absent: rub, click - Extremities Extremities: no ischemia, pulses intact, pulses symmetrical, No edema Peripheral Pulses: within normal limits - Abdominal General gastrointestinal: Present: soft, non-tender, non-distended, normal bowel sounds Female genitourinary: Present: normal - Rectal Rectal Exam: deferred - Integumentary Integumentary: Present: clear, warm, dry - Musculoskeletal Musculoskeletal: gait normal, strength equal bilaterally - Psychiatric Psychiatric: appropriate mood/affect, intact judgment & insight - Neurologic Neurologic: CNII-XII intact, moves all extremities - Allied Health Allied health notes reviewed: nursing, case management Disposition: DC-01 TO HOME OR SELFCARE Time spent for discharge: 32 minutes Core Measure Documentation - Palliative Care Palliative Care/ Comfort Measures: Not Applicable - Core Measures Any of the following diagnoses?: none Exam - Constitutional Vitals: Temp Pulse Resp BP Pulse Ox 98.4 F 58 L 20 120/50 98 01/09/18 07:16 01/09/18 10:00 01/09/18 10:00 01/09/18 07:16 01/09/18 10:00 Plan Activity: advance as tolerated Weight Bearing Status: Weight Bear as Tolerated Diet: low fat, low salt Follow up with: CORTEZ WEATHERS MD [Other] - 3-5 Days Prescriptions: Lacosamide [Vimpat] 300 mg PO DAILY #30 tablet levETIRAcetam [Keppra TAB] 1,500 mg PO BID #30 tablet
[2018-01-09 15:28] VITALS: BP 136/72
--- NOTE | 2018-01-10 13:01 | XRay Report ---
AP CHEST: HISTORY: Hypertension AP view of the chest demonstrates a normal mediastinal and cardiac contour with clear lungs and normal bony and soft tissue structures. IMPRESSION: Unremarkable AP chest.
== END 2018-01-09 16:44 | disposition home or self-care (01) ==
LOC: ED 09:53 → INTOOBSV 12:18 → 4A 12:18
PROVIDERS: ADMIT Internal Medicine; ATTEND Internal Medicine
DX: G40.401 Other generalized epilepsy and epileptic syndromes, not intractable, with status epilepticus (principal); I11.0 Hypertensive heart disease with heart failure; I50.42 Chronic combined systolic (congestive) and diastolic (congestive) heart failure; F19.10 Other psychoactive substance abuse, uncomplicated; E83.51 Hypocalcemia; F17.210 Nicotine dependence, cigarettes, uncomplicated; F32.9 Major depressive disorder, single episode, unspecified; Z90.710 Acquired absence of both cervix and uterus
CPT/HCPCS: 36415; 71045; 80048; 80053; 80074; 80307; 81001; 81025; 82550; 82553; 82962; 83036; 83735; 83970; 84100; 84443; 85025; 85027; 85610; 93005; 93010; 95819; 96361; 96365; 96366; 96375; 99285; 99406; G0378; J1953; J7030; J7050

== ENCOUNTER 2018-07-18 16:19 | Emergency (ER) | payer MEDICARE ==
[2018-07-18 16:36] VITALS: BP 129/76
[2018-07-18] MEDS ORDERED: ZOFRAN IV ONE (16:52)
[2018-07-18] MEDS ORDERED: MORPHINE IV ONE (16:52)
[2018-07-18] MEDS ORDERED: KEPPRA 1,000 MG/NS 0.75% 100ML 1,000 MG/100 ML BAG IV ONE (16:52)
[2018-07-18] MEDS ORDERED: TETRACAINE 0.5% OU ONE (16:53)
[2018-07-18 17:00] LABS: Hemoglobin 13.8 gm/dl (10.1-14.3); Mean Corpuscular HGB Conc 32 % (30-34); Mean Corpuscular Volume 90 fl (79-97); Platelet Count 283 K/mm3 (140-440); Red Blood Count 4.76 M/mm3 (3.65-5.03); Red Cell Distribution Width 14.1 % (13.2-15.2)
[2018-07-18 17:15] LABS: BUN/Creatinine Ratio 13; Blood Urea Nitrogen 9 mg/dL (7-17); Calcium 8.7 mg/dL (8.4-10.2); Hemolysis Index 14
[2018-07-18] MEDS ORDERED: NACL 0.9% IR ONE (17:30)
--- NOTE | 2018-07-18 17:36 | Emergency Department Report ---
ED Seizure HPI - General Chief Complaint: Seizure Stated Complaint: SEIZURE/EYE LAC Time Seen by Provider: 07/18/18 16:33 Source: patient Mode of arrival: Ambulatory Limitations: No Limitations - History of Present Illness Initial Comments: 43-year-old female history of seizures that presents to ED after having 2 seizures today. She sustained injury to right eye, with bruising and laceration to the eyelid. Patient states vision is blurred in the right eye, however she does not currently have her contact in that eye. Patient states she is complian t with Vimpat and Keppra. The patient believes seizure this sugar due to emotional distress today. MD Complaint: seizure -: This afternoon Description of Episode: loss of consciousness, tonic-clonic movement Witnessed:: Yes Trauma: Yes (face) Seizure History: known seizure disorder, compliant with medication Place: home Possible Precipitating Event: stress Associated Symptoms: denies other symptoms Treatments Prior to Arrival: none - Related Data Home Medications Medication Instructions Recorded Confirmed Last Taken Atenolol [Tenormin] 100 mg PO BID 01/06/18 01/06/18 Unknown Furosemide [Lasix] 40 mg PO BID 01/06/18 01/06/18 Unknown Sertraline [Zoloft] 100 mg PO BID 01/06/18 01/06/18 Unknown amLODIPine [Norvasc] 10 mg PO DAILY 01/06/18 01/06/18 Unknown lamoTRIgine [LaMICtal] 100 mg PO QDAY 01/06/18 01/06/18 01/05/18 tiZANidine [Zanaflex] 4 mg PO TID PRN 01/06/18 01/06/18 Unknown Previous Rx's Medication Instructions Recorded Last Taken Type Lacosamide [Vimpat] 300 mg PO DAILY #30 tablet 01/09/18 Unknown Rx levETIRAcetam [Keppra TAB] 1,500 mg PO BID #30 tablet 01/09/18 Unknown Rx Erythromycin [Erythromycin Ophth 1 applic OD 6XD 7 Days #3.5 g 07/18/18 Unknown Rx Oint] Naproxen [Naprosyn] 500 mg PO BID PRN #20 tablet 07/18/18 Unknown Rx Allergies Allergy/AdvReac Type Severity Reaction Status Date / Time No Known Allergies Allergy Verified 04/22/14 21:44 ED Review of Systems ROS: Stated complaint: SEIZURE/EYE LAC Other details as noted in HPI Comment: All other systems reviewed and negative Constitutional: denies: chills, fever Eyes: eye pain Neurological: headache ED Past Medical Hx - Past Medical History Hx Hypertension: Yes Hx CVA: No Hx Heart Attack/AMI: No Hx Congestive Heart Failure: No Hx Diabetes: No Hx Deep Vein Thrombosis: No Hx Pulmonary Embolism: No Hx GERD: No Hx Liver Disease: No Hx Renal Disease: No Hx Sickle Cell Disease: No Hx Arthritis: No Hx Headaches / Migraines: No Hx Seizures: Yes (epilepsy) Hx Kidney Stones: No Hx Psychiatric Treatment: Yes (depression) Hx Asthma: No Hx COPD: No Hx Tuberculosis: No Hx Dementia: No Hx HIV: No - Surgical History Hx Coronary Stent: No Hx Open Heart Surgery: No Hx Pacemaker: No Hx Internal Defibrillator: No Hx Cholecystectomy: Yes (2003) Hx Appendectomy: No Hx Breast Surgery: No Additional Surgical History: hysterectomy 2012. abdominal abscess removal 2012 - Social History Smoking Status: Current Every Day Smoker Substance Use Type: None - Medications Home Medications: Home Medications Medication Instructions Recorded Confirmed Last Taken Type Atenolol [Tenormin] 100 mg PO BID 01/06/18 01/06/18 Unknown History Furosemide [Lasix] 40 mg PO BID 01/06/18 01/06/18 Unknown History Sertraline [Zoloft] 100 mg PO BID 01/06/18 01/06/18 Unknown History amLODIPine [Norvasc] 10 mg PO DAILY 01/06/18 01/06/18 Unknown History lamoTRIgine [LaMICtal] 100 mg PO QDAY 01/06/18 01/06/18 01/05/18 History tiZANidine [Zanaflex] 4 mg PO TID PRN 01/06/18 01/06/18 Unknown History Lacosamide [Vimpat] 300 mg PO DAILY #30 tablet 01/09/18 Unknown Rx levETIRAcetam [Keppra TAB] 1,500 mg PO BID #30 tablet 01/09/18 Unknown Rx Erythromycin [Erythromycin Ophth 1 applic OD 6XD 7 Days #3.5 g 07/18/18 Unknown Rx Oint] Naproxen [Naprosyn] 500 mg PO BID PRN #20 tablet 07/18/18 Unknown Rx ED Physical Exam - General Limitations: No Limitations General appearance: alert, in no apparent distress - Eye Eye exam: Present: PERRL, EOMI, other (corneal abrsion present right eye) Pupils: Present: other (ecchymosis around right eye; subconjunctival hemorrhage present in right eye; 2.5 cm laceration to upper right eye lidm 0.5 cm la ceration just inferolateral to right eye) - ENT ENT exam: Present: mucous membranes moist - Neck Neck exam: Present: normal inspection - Respiratory Respiratory exam: Present: normal lung sounds bilaterally. Absent: respiratory distress - Cardiovascular Cardiovascular Exam: Present: regular rate, normal rhythm - GI/Abdominal GI/Abdominal exam: Present: soft. Absent: tenderness - Extremities Exam Extremities exam: Present: normal inspection - Neurological Exam Neurological exam: Present: alert, oriented X3, CN II-XII intact. Absent: motor sensory deficit - Psychiatric Psychiatric exam: Present: normal affect, normal mood - Skin Skin exam: Present: warm, dry, ecchymosis ED Course Vital Signs 07/18/18 16:35 Temperature 98.2 F Pulse Rate 74 Respiratory 16 Rate Blood Pressure 129/76 [Left] O2 Sat by Pulse 96 Oximetry - Laceration /Wound Repair Eye Wound Location: face Wound Length (cm): 2 Wound's Depth, Shape: superficial Wound Explored: clean Irrigated w/ Saline (ccs): 20 Wound Debrided: minimal Wound Repaired With: Dermabond Sterile Dressing Applied?: No Face Wound Location: face Wound Length (cm): 1 Wound's Depth, Shape: superficial Wound Explored: clean Irrigated w/ Saline (ccs): 20 Wound Debrided: minimal Wound Repaired With: Dermabond Sterile Dressing Applied?: No ED Medical Decision Making - Lab Data Result diagrams: 07/18/18 16:39 07/18/18 16:39 - Radiology Data Radiology results: report reviewed, image reviewed - Medical Decision Making Pt w/ hx of seizures, presents after having 2 seizures today. Normal neuro exam. Sustained facial trauma w/ 2nd seizure. CT Head and Face negative. Pt w/ corneal abrasion as evidenced by Billings[place] Lamp exam. Lacerations repaired with dermabond. Pt loaded w/ Keppra. No seizures here in ED. Advised to f/u with PCP. Return precautions given. - Differential Diagnosis seizure, electrolyte abnormality, intracranial bleed, facial fractures Critical care attestation.: If time is entered above; I have spent that time in minutes in the direct care of this critically ill patient, excluding procedure time. ED Disposition Clinical Impression: Seizure, Facial contusion, Subconjunctival hemorrhage, Corneal abrasion, right Disposition: - TO HOME OR SELFCARE Is pt being admited?: No Condition: Stable Instructions: Subconjunctival Hemorrhage (ED), Corneal Abrasion (ED), Recurrent Seizures Adult (ED) Prescriptions: Erythromycin [Erythromycin Ophth Oint] 1 applic OD 6XD 7 Days #3.5 g Naproxen [Naprosyn] 500 mg PO BID PRN #20 tablet PRN Reason: pain Referrals: ROSAURA GODOY RN [Primary Care Provider] - 3-5 Days [facility] [Provider Group] - 3-5 Days Time of Disposition: 20:36
--- NOTE | 2018-07-18 19:15 | Cat Scan Report ---
FINAL REPORT EXAM: CT HEAD/BRAIN WO CON HISTORY: seizure, injury TECHNIQUE: 2.5 millimeter axial images from the skullbase to the vertex. Comparison: CT face also performed today FINDINGS: There is no evidence of an acute intracranial process, intracranial hemorrhage or mass effect. The ventricles are normal size. The visualized portions of the orbits, paranasal and mastoid sinuses are unremarkable. The bony structures are unremarkable. There is no evidence of fracture. There is right parietal scalp soft tissue swelling. IMPRESSION: 1. No evidence of an acute intracranial process, intracranial hemorrhage or mass effect. 2. No evidence of fracture. 3. Right parietal scalp soft tissue swelling.
--- NOTE | 2018-07-18 19:19 | Cat Scan Report ---
FINAL REPORT EXAM: CT FACIAL BONES WO CON HISTORY: seizure, injury TECHNIQUE: Axial helical imaging through the face with sagittal and coronal reformatted images obtai flavia. Comparison: Head CT also performed today FINDINGS: There is right facial and periorbital soft tissue swelling. The orbital contents are unremarkable in appearance. The paranasal and mastoid sinuses are unremarkable. The nasal septum is midline. There is no evidence of facial bone fracture. There is evidence of dental caries. IMPRESSION: 1. No evidence of facial fracture. 2. Right facial and periorbital soft tissue swelling. .3. Evidence of dental caries
== END 2018-07-18 21:05 | disposition home or self-care (01) ==
LOC: ED 16:19
DX: S01.111A Laceration without foreign body of right eyelid and periocular area, initial encounter (principal); G40.909 Epilepsy, unspecified, not intractable, without status epilepticus; I10 Essential (primary) hypertension; Z90.49 Acquired absence of other specified parts of digestive tract; Z90.710 Acquired absence of both cervix and uterus; F17.200 Nicotine dependence, unspecified, uncomplicated; H11.31 Conjunctival hemorrhage, right eye; W18.30XA Fall on same level, unspecified, initial encounter; Y93.89 Activity, other specified; Y92.89 Other specified places as the place of occurrence of the external cause; Y99.8 Other external cause status
CPT/HCPCS: 12013; 36415; 70450; 70486; 80048; 85027; 96365; 96366; 96375; 99285; J1953; J2270; J2405